=== PATIENT | male | born 2000 | race African-American/Black ===

== ENCOUNTER 2023-12-31 08:14 | Emergency (ER) | payer MEDICAID ==
[~2023-12-31] VITALS: Ht 167.6 cm; Wt 54.5 kg
[2023-12-31 08:16] VITALS: O2SAT 100
[2023-12-31] MEDS ORDERED: NAPR220C61 MT (10:06)
[2023-12-31] MEDS ORDERED: ACET-2708 MT (10:06)
[2023-12-31] MEDS: IBUPROFEN 600MG TABLET PO ONE (10:13)
[2023-12-31 10:20] VITALS: BP 116/74; PULSE 60; RESP 18; TEMP 37.00296; O2SAT 100
== END 2023-12-31 10:31 | disposition home or self-care (01) ==
LOC: ER 08:14
DX: S62.336A Displaced fracture of neck of fifth metacarpal bone, right hand, initial encounter for closed fracture (principal); G89.11 Acute pain due to trauma; Y08.89XA Assault by other specified means, initial encounter; Y93.89 Activity, other specified; Y92.89 Other specified places as the place of occurrence of the external cause; Y99.8 Other external cause status
CPT/HCPCS: 29125; 73130; 99283

== ENCOUNTER 2024-04-07 22:34 | Emergency (ER) | payer MEDICAID ==
[~2024-04-07] VITALS: Ht 175.3 cm; Wt 74.0 kg
[~2024-04-07 22:34] MED LIST: ACET-2708 MT; NAPR220C61 MT
[2024-04-07 22:42] VITALS: O2SAT 99
[2024-04-07] MEDS ORDERED: MORPHINE SULFATE 4 MG/ML INJ (FOR IV/IM USE) IV ONE (22:45)
[2024-04-07] MEDS ORDERED: TETANUS, DIPHTHERIA, PERTUSSIS VAC/PF 0.5ML (>10YR OLD) IM ONE (22:45)
[2024-04-08] MEDS: MORPHINE SULFATE 4 MG/ML INJ (FOR IV/IM USE) IV NR (01:18)
[2024-04-08] MEDS ORDERED: BACITRACIN ZINC OINT UDPKT TOP ONE (01:30)
[2024-04-08] MEDS ORDERED: LIDOCAINE HCL/PF 1% 10 MG/ML 5ML VIAL INFIL ONE ×2 (01:30→05:45)
[2024-04-08 02:20] LABS: BASOPHILS % 0.5 % (0.0-2.0); EOSINOPHILS % 1.5 % (0.0-5.0); HEMATOCRIT. 40.2 % (42.0-52.0); HEMOGLOBIN. 13.4 g/dL (14.0-18.0); LYMPHOCYTES % 21.5 % (20.0-50.0); MEAN CORPUSCULAR HEMOGLOBIN 29.2 pg (28.0-32.0); MEAN CORPUSCULAR HGB CONC 33.3 g/dL (31.0-37.0); MEAN CORPUSCULAR VOLUME 87.6 fL (80.0-94.0); MEAN PLATELET VOLUME 8.8 fl (7.4-10.4); MONOCYTES % 5.8 % (2.0-8.0); NEUTROPHILS % 70.7 % (40.0-76.0); PLATELET 185 x1000/uL (130-400); RED BLOOD CELL COUNT 4.59 mill/uL (4.7-6.1); RED CELL DISTRIBUTION WIDTH 13.7 % (11.6-14.6); WHITE BLOOD COUNT 8.6 x1000/uL (4.5-11.0)
[2024-04-08 02:42] LABS: CARBON DIOXIDE 22 mEq/L (21-32); CHLORIDE 108 mEq/L (98-107); POTASSIUM 3.8 mEq/L (3.5-5.1); SODIUM 141 mEq/L (136-145)
[2024-04-08 02:43] LABS: CALCIUM 9.6 mg/dL (8.7-10.4)
[2024-04-08 02:48] LABS: GLUCOSE 144 mg/dL (70-105); UREA NITROGEN BLOOD 12 mg/dL (9-23)
[2024-04-08] MEDS: TETANUS, DIPHTHERIA, PERTUSSIS VAC/PF 0.5ML (>10YR OLD) IM ONE (03:40)
[2024-04-08] MEDS: CEFAZOLIN 1000MG PREMIX 50 ML IV ONE (03:54)
[2024-04-08 05:04] VITALS: TEMP 36.9; O2SAT 99
[2024-04-08 05:10] VITALS: BP 134/77; PULSE 70; RESP 18; TEMP 98.4
[2024-04-08] MEDS ORDERED: MORPHINE SULFATE 2 MG/ML INJ (NOT FOR IM USE) IV PRN (05:30)
[2024-04-08] MEDS ORDERED: ACETAMINOPHEN 325MG TABLET PO PRN ×2 (05:30)
[2024-04-08] MEDS ORDERED: IPRATROPIUM/ALBUTEROL 0.5-3(2.5)MG/3ML NEB HHN PRN (05:30)
[2024-04-08] MEDS ORDERED: ONDANSETRON HCL 4MG/2ML INJ IV PRN (05:30)
[2024-04-08] MEDS ORDERED: HYDROCODONE/ACETAMINOPHEN 5/325MG TABLET PO ONE (05:45)
[2024-04-08] MEDS ORDERED: AMOX1TAB16 MT (05:47)
[2024-04-08] MEDS ORDERED: HYDR-4001 MT (05:47)
[2024-04-08] MEDS ORDERED: NAPR-1164 MT (05:47)
[2024-04-08] MEDS ORDERED: PANTOPRAZOLE SODIUM 40 MG/VIAL IV SCH (09:00)
== END 2024-04-08 07:43 | disposition home or self-care (01) ==
LOC: ER 22:34
DX: S91.331A Puncture wound without foreign body, right foot, initial encounter (principal); S92.911A Unspecified fracture of right toe(s), initial encounter for closed fracture; Y04.0XXA Assault by unarmed brawl or fight, initial encounter; Y93.01 Activity, walking, marching and hiking; Y92.480 Sidewalk as the place of occurrence of the external cause; Y99.8 Other external cause status
CPT/HCPCS: 12002 ×2; 73590; 73630; 29515; 99284; 80048; 85025; 87040; 36415; 90715; 96365; 96375; J0690; J2270; Z7610 ×3; 12001; A4606